=== PATIENT | male | born 1980 | race Two or more races ===

== ENCOUNTER 2018-10-21 18:48 | Emergency (ER) | payer OTHER ==
[~2018-10-21] VITALS: Ht 172.7 cm; Wt 93.0 kg
== END 2018-10-21 20:45 | disposition home or self-care (01) ==
LOC: ER 18:48
DX: S93.401A Sprain of unspecified ligament of right ankle, initial encounter (principal); X50.9XXA Other and unspecified overexertion or strenuous movements or postures, initial encounter; F17.200 Nicotine dependence, unspecified, uncomplicated
CPT/HCPCS: 73610; 99283-25